=== PATIENT | male | born 1940 | race Caucasian/White ===

== ENCOUNTER 2024-08-20 08:36 | Outpatient (CLI) | payer MEDICARE, BC ==
[2024-08-20] MEDS ORDERED: Magnevist 469MG/ML 20 ML VIAL ONE (13:44)
== END 2024-08-20 08:37 | disposition home or self-care (01) ==
LOC: CSHMRI 08:36
PROVIDERS: ATTEND Urology
DX: C61 Malignant neoplasm of prostate (principal)
CPT/HCPCS: 72197; 82565